=== PATIENT | female | born 1995 | race Caucasian/White ===

== ENCOUNTER 2017-05-23 11:52 | Emergency (ER) | payer BC ==
[~2017-05-23] VITALS: Ht 149.9 cm; Wt 51.0 kg
[~2017-05-23 11:52] MED LIST: PREN1TAB62 PO
[2017-05-23 12:00] VITALS: Ht 149.9 cm; Wt 51.0 kg
[2017-05-23] MEDS ORDERED: HYDR-906 PO (13:18)
[2017-05-23] MEDS ORDERED: NAPR-260 PO (13:18)
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
== END 2017-05-23 13:40 | disposition home or self-care (01) ==
LOC: FTE 11:52
DX: S59.902A Unspecified injury of left elbow, initial encounter (principal); V28.9XXA Unspecified motorcycle rider injured in noncollision transport accident in traffic accident, initial encounter; Y92.410 Unspecified street and highway as the place of occurrence of the external cause
CPT/HCPCS: 99283